=== PATIENT | female | born 1950 | race Caucasian/White ===

== ENCOUNTER → 2016-06-01 | Outpatient (CLI) | payer BC ==
[~2016-06-01] MED LIST: ASCO1CAP3 PO; CALC-51 PO; CHOL1000 PO; CLBPO15 TOP; FMR25 PO; HYDR-5688 PO; LISI-725 PO; LISI10TA PO; MAGN200T3 PO; MELO7.5T5 PO; MISCCAP80 PO; MULT-506 PO; OXYC-57 PO; TRAM-10 PO; VALA500T60 PO
--- NOTE | 2016-06-01 15:32 | MAMMOGRAPHY REPORT ---
UNILATERAL RIGHT DIGITAL DIAGNOSTIC MAMMOGRAM TOMOSYNTHESIS WITH CAD: 06/01/2016 CLINICAL HISTORY: History of right breast cancer status post lumpectomy and radiation therapy. The patient reports some right breast pain after surgery but denies any palpable lumps or other complain ts. TECHNIQUE: Breast tomosynthesis in addition to standard 2D mammography was performed. Current study was also evaluated with a Computer Aided Detection (CAD) system. Right CC and MLO 2-D and tomosynt hesis images and spot magnification right cc and ML views were obtained. COMPARISON: Comparison is made to exams dated: 12/06/2015 mammogram, 11/29/2015 mammogram, 11/29/2015 ul trasound, and 11/22/2015 mammogram - [facility]. BREAST COMPOSITION: There are scattered areas of fibroglandular density in the right breast. FINDINGS: There are new post surgical changes in the right central breast from prior lumpectomy, inc luding new density, architectural distortion, and surgical clips at the lumpectomy bed. Spot magnif ication views of the lumpectomy bed demonstrate grouped faint calcifications lateral and superior to the lumpectomy bed as well as a single punctate calcification anterior to the surgical clips on the cc view which appear stable compared to multiple prior exams. Additionally, there is a small 1 mm cluster of faint punctate calcifications medial to the lumpectomy bed on the cc view which is also l ikely stable compared to multiple prior exams. There is mild diffuse right breast skin thickening, likely a sequela of radiation therapy. The remainder of the right breast is stable compared to prio r exams, without suspicious masses, calcifications, or areas of nonsurgical architectural distortion noted. IMPRESSION: ACR-BI-RADS CATEGORY 3: PROBABLY BENIGN Expected posttreatment changes in the right breast. Benign-appearing calcifications seen adjacent t o the lumpectomy bed are likely stable compared to multiple prior exams and are probably benign. Re commend bilateral diagnostic mammograms in 6 months, to reevaluate the right breast postsurgical paulina nges and calcifications and for routine mammography of the left breast. The patient has been verbally notified of the results. Approximately 10% of breast cancers are not detected with mammography. A negative mammographic repor t should not delay biopsy if a clinically suggestive mass is present. Lili Mueller M.D. ah/:06/01/2016 14:15:15 Senior Producer: Perla DOVE)([place]), [facility] letter sent: Personal History 3 BI-RADS Code: ACR-BI-RADS Category 3: Probably Benign
== END | disposition home or self-care (01) ==
LOC: C.MAMM 13:43
PROVIDERS: ATTEND Radiology Radiation Oncology
DX: R92.1 Mammographic calcification found on diagnostic imaging of breast (principal); Z85.3 Personal history of malignant neoplasm of breast; Z08 Encounter for follow-up examination after completed treatment for malignant neoplasm

== ENCOUNTER → 2016-06-13 | Outpatient (CLI) | payer BC ==
[2016-06-13 10:57] LABS: BASO % 0.4 %; BASO ABS # 0.02 K/uL (0-0.2); COMPLETE YES; EOS % 1.3 %; HEMATOCRIT 41.9 % (37-47); IG% 0.2 %; LYMPH % 29.1 %; LYMPH ABS # 1.52 K/uL (1.2-3.4); MEAN CELL VOLUME 93.9 fL (80-100); MEAN CORPUSCULAR HEMOGLOBIN 32.1 pg (25-34); MEAN CORPUSCULAR HGB CONC 34.1 g/dl (32-36); MEAN PLATELET VOLUME 10.4 fL (7.4-10.4); MONO % 6.3 %; NEUT % 62.7 %; PLATELET COUNT 303 K/uL (130-400); RED BLOOD COUNT 4.46 M/uL (4.2-5.4); WHITE BLOOD COUNT 5.22 K/uL (4.8-10.8)
[2016-06-13 11:21] LABS: ALB/GLOB RATIO 1.1 (0.9-2); ALT/SGPT 22 U/L (12-78); AST/SGOT 11 U/L (15-37); BLOOD UREA NITROGEN 14 mg/dl (7-18); CALCIUM 9.8 mg/dl (8.5-10.1); CARBON DIOXIDE 29 mmol/L (21-32); CHLORIDE 106 mmol/L (98-107); CREATININE 0.79 mg/dl (0.60-1.20); GLUCOSE 79 mg/dl (70-99); POTASSIUM 3.9 mmol/L (3.5-5.1); SODIUM 143 mmol/L (136-145)
[2016-06-13 11:32] LABS: ALKALINE PHOSPHATASE 77 U/L (45-117); CHOLESTEROL 230 mg/dl (0-200); CHOLESTEROL/HDL RATIO 2.9; HDL CHOLESTEROL 79 mg/dl; LDL CHOLESTEROL CALCULATED 121 mg/dl; TRIGLYCERIDES 150 mg/dl (0-150); VERY LOW DENSITY LIPOPROT CALC 30 mg/dl
== END | disposition home or self-care (01) ==
LOC: C.LAB1850 09:18
PROVIDERS: ATTEND Internal Medicine
DX: M85.80 Other specified disorders of bone density and structure, unspecified site (principal); E78.5 Hyperlipidemia, unspecified

== ENCOUNTER → 2016-09-12 | Outpatient (CLI) | payer BC ==
[2016-09-12 14:08] VITALS: BP 157/93; PULSE 72; TEMP 36.8; O2SAT 98
--- NOTE | 2016-09-12 15:41 | Radiation Oncology Follow-Up ---
Radiation Oncology Follow-Up Date of Visit September 12, 2016. Reason For Visit 6 month follow-up Radiation Completion Date 02/09/16 Diagnosis (1) Breast cancer Status: Resolved Onset Date: 12/06/2015 Histology Subtype: ductal Stage: l (A) Permanent Comment: Abnormal right breast mammogram Status post stereotactic biopsy 12/06/2015 Invasive ductal carcinoma grade 1 Estrogen receptor positive, progesterone receptor positive, HER-2/enedina negative Status post lumpectomy and sentinel lymph node biopsy 12/22/2015 Stage pTIb pN0 M0 Oncotype DX score of 13 Status post completion of radiation therapy 02/09/2016 received 3850 cGy utilizing accelerated partial breast irradiation. Last Edited By: Rosa Tamez on Mar 21, 2016 16:14 History of Present Illness Ms. Mon is a 66-year-old female without a family history of breast cancer. She is been followed with annual screening mammograms. On 11/22/2015 patient underwent a bilateral digital screening mammogram. This showed a possible increasing cluster of microcalcifications in the 12:00 middle to posterior right breast. Additional spot magnification views were recommended. In the same area there was a possible increase in focal asymmetry measuring up proximally 1.2 cm. Additional spot compression to mow synthesis views and possibly ultrasound were recommended. On 11/29/2015 patient underwent a unilateral right digital diagnostic mammogram and targeted right breast ultrasound. This confirmed a 1.2 cm cluster pleomorphic microcalcifications at 12:30 middle one third of the right breast that had increased compared to all prior studies. On spot compression views including to mow synthesis images there was no definitive architectural distortion or obvious mass. Real-time high-resolution sonographic evaluation was performed in the 11, 12, 1 and 2:00 axes of the right breast. Noted definite 12 mm lesion is seen to correlate with the mammographic abnormality. This was given a BI-RADS Category 4B with recommended further evaluation of the right breast with stereotactic guided biopsy. On 12/06/2015 patient underwent a stereotactic guided biopsy of the right breast. This revealed an invasive ductal carcinoma Myra grade 1 of 3 measuring 1.5 mm. Estrogen receptors were positive (100%, strong intensity, H score: 300). Progesterone receptors were positive (100%, intermediate intensity , H score: 200). HER-2/enedina overexpression was negative and confirmed negative by FISH amplification. Ki-67 proliferation index was 15% (intermediate). 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 Case: [id number]. Patient was seen by Dr. Juan Pan. He discussed treatment options with the patient who proceeded to agree to a breast conserving therapy. Therefore on the patient underwent a sentinel node biopsy and partial mastectomy of the right breast. 3 sentinel nodes and one non-sentinel node were identified. And all were negative by routine stains or by immunohistochemistry to cytokeratin. The lumpectomy specimen confirmed residual infiltrating ductal carcinoma grade 1 measuring at least 0.6 x 0.5 cm. There was evidence of ductal carcinoma in situ, intermediate grade with comedonecrosis. There was extensive intraductal component present and lobular carcinoma in situ. The margins were negative for in situ and invasive carcinoma. Lobular carcinoma in situ was present at the inferior margin. Additional margins were negative. Invasive carcinoma was present 0.1 cm from the superior margin and the DCIS is present less than 0.1 cm from the superior margin and 0.1 cm of inked inferior margin. The area of DCIS measures 2.0 x 1.6 x 1.0 cm. Within this area was infiltrating ductal carcinoma. Case: 11/24/2007-S. The tissue was sent for Oncotype DX analysis. Recurrence score was a 13 placing the patient in a low risk category. The patient was seen in referral by Dr. Freddie Warren. Based on the Oncotype testing results he recommended no systemic chemotherapy. He did discuss adjuvant antiestrogen therapy which will begin following the completion of her radiation. We will also asked to see the patient in referral to evaluate her for and discuss with her the role of adjuvant radiation. It is for this reason the patient is seen in referral. She underwent a CT simulation was found to be a candidate for accelerated partial breast irradiation. This was completed on 02/09/2016. She received 3850 cGy Interim History She's been doing well over the past 6 months. She does continue to have a mild discomfort in the lower outer portion of the right breast. She gives a pain level I. Nothing in particular makes this worse. She has noted no masses and no changes of the axilla. She's had no swelling of her arm. She is on Femara and denies side effects other than mild hot flashes. She is up-to-date on mammography. She has a mammogram 06/01/2016. This was a unilateral right digital diagnostic mammogram. This showed expected posttreatment changes in the right breast. Benign-appearing calcifications seen adjacent to the lumpectomy bed are likely stable compared to multiple prior studies and are probably benign. This was given a BI-RADS Category 3 with recommendation of a bilateral digital diagnostic mammogram in 6 months. She has been feeling ill for the past 2 days. She did have mild fever and chills. She has had nausea without vomiting. She did have some diarrhea. She ate out at [employer] and feels that this may be due to the type of food daily. She took Zantac last evening and this did seem to help. Allergies Coded Allergies: BEE STING (Verified Allergy, Mild, SWELLING AROUND SITE AND SOMETIMES WORSE DEPENDS ON BEE, 12/22/15) NO KNOWN DRUG ALLERGIES (Verified Allergy, Mild, ., 12/22/15) Home Medications Scheduled Ascorbic Acid (Vitamin C), 1 CAP PO DAILY Calcium Carbonate-Vitamin D (Calcium), 1,500 MG PO QAM Cholecalciferol (Vitamin D3), 1 TAB PO QAM Letrozole (Femara), 1 TAB PO DAILY Lisinopril (Prinivil), 1 TAB PO DAILY Magnesium (Magnesium), 2 TAB PO DAILY Scheduled PRN Multivitamin (Multivitamin), 1 TAB PO DAILY PRN for WHEN REMEMBERS Valacyclovir (Valtrex), 500 MG PO DAILY PRN for COLD SORES Review of Systems Gastrointestinal: Symptoms: WNL Oral: Symptoms: No Problems Respiratory: Symptoms: WNL Urinary: Symptoms: WNL Skin: Symptoms: No Problems Breast: Right Upper Arm Measurement: 27.5 Right Mid Arm Measurement: 23.5 Right Wrist Measurement: 15.5 Left Upper Arm Measurement: 28.8 Left Mid Arm Measurement: 23.5 Left Wrist Measurement: 15.5 Arm Dominence: Right Physical Exam Vital Signs Date Time Temp Pulse Resp B/P Pulse Ox O2 Delivery O2 Flow Rate FiO2 09/12/16 14:08 36.8 72 16 157/93 98 Fatigue: None General Appearance: no apparent distress Eyes: normal inspection, EOMI ENT: normal ENT inspection, hearing grossly normal Neck: no adenopathy, thyroid normal Respiratory/Chest: lungs clear, no respiratory distress, no accessory muscle use Breast: Breast examination reveals well-healed incisions of the right breast. There are no masses. There is slight tenderness of the right lower outer quadrant. There is no erythema or edema. There is no ecchymosis. There are no skin retractions or nipple changes. Using the [place] score cosmesis she has a excellent outcome. The left breast showed no masses or tenderness and no axillary adenopathy. Cardiovascular: regular rate, rhythm, no gallop, no murmur Abdomen: non tender Neurologic/Psychiatric: no motor/sensory deficits, alert Skin: warm/dry Lymphatic: no adenopathy Laboratory Studies Test 08/24/16 10:28 White Blood Count 4.35 K/uL (4.8-10.8) Red Blood Count 4.25 M/uL (4.2-5.4) Hemoglobin 13.3 g/dL (12.0-16.0) Hematocrit 40.0 % (37-47) Mean Corpuscular Volume 94.1 fL (80-100) Mean Corpuscular Hemoglobin 31.3 pg (25-34) Mean Corpuscular Hemoglobin Concent 33.3 g/dl (32-36) Platelet Count 276 K/uL (130-400) Mean Platelet Volume 10.0 fL (7.4-10.4) Neutrophils (%) (Auto) 57.2 % Lymphocytes (%) (Auto) 30.8 % Monocytes (%) (Auto) 6.0 % Eosinophils (%) (Auto) 4.6 % Basophils (%) (Auto) 0.9 % Neutrophils # (Auto) 2.49 K/uL (1.4-6.5) Lymphocytes # (Auto) 1.34 K/uL (1.2-3.4) Monocytes # (Auto) 0.26 K/uL (0.11-0.59) Eosinophils # (Auto) 0.20 K/uL (0-0.5) Basophils # (Auto) 0.04 K/uL (0-0.2) RDW Standard Deviation 43.3 fL (36.4-46.3) RDW Coefficient of Variation 12.7 % (11.5-14.5) Immature Granulocyte % (Auto) 0.5 % Immature Granulocyte # (Auto) 0.02 K/uL (0.00-0.02) Sodium Level 145 mmol/L (136-145) Potassium Level 3.8 mmol/L (3.5-5.1) Chloride Level 109 mmol/L (98-107) Carbon Dioxide Level 30 mmol/L (21-32) Anion Gap 6.0 mmol/L (3-11) Blood Urea Nitrogen 21 mg/dl (7-18) Creatinine 0.83 mg/dl (0.60-1.20) Estimated GFR () 87.0 Estimated GFR (Non- 75.0 BUN/Creatinine Ratio 25.2 (10-20) Random Glucose 80 mg/dl (70-99) Calcium Level 9.2 mg/dl (8.5-10.1) Total Bilirubin 0.4 mg/dl (0.2-1) Aspartate Amino Transferase (AST) 10 U/L (15-37) Alanine Aminotransferase (ALT) 22 U/L (12-78) Alkaline Phosphatase 74 U/L (45-117) Lactate Dehydrogenase 168 U/L (84-246) Total Protein 7.0 gm/dl (6.4-8.2) Albumin 3.7 gm/dl (3.4-5.0) Globulin 3.3 gm/dl (2.5-4.0) Albumin/Globulin Ratio 1.1 (0.9-2) Additional Studies Patient: ARIANA MON [facility] Rec: [id number] Address1: [facility] Address2: [facility] ID: [id number] Date: 1950 Sex: F Ref Phy: Evert Warren MD Att Phy: Rosa Tamez PA-C [facility] Phy: Thuan Oneil M.D. Inter Phy: Lili Mueller [facility]: [place] [address] SC: C.MAMM Report #: [id number] Lead Vulcanizing Operator: OCTAVIO Diagnosis: RT BREAST CA F/U TO RADIATION Service Date: 06/01/16 MNE: [id number] Ordering Dr: Rosa Tamez PA-C CC: Rosa Tamez PA-C CONF: DICTATED BY: Lili Mueller MD MAMMOGRAPHY REPORT UNILATERAL RIGHT DIGITAL DIAGNOSTIC MAMMOGRAM TOMOSYNTHESIS WITH CAD: 06/01/2016 CLINICAL HISTORY: History of right breast cancer status post lumpectomy and radiation therapy. The patient reports some right breast pain after surgery but denies any palpable lumps or other complaints. TECHNIQUE: Breast tomosynthesis in addition to standard 2D mammography was performed. Current study was also evaluated with a Computer Aided Detection (CAD ) system. Right CC and MLO 2-D and tomosynthesis images and spot magnification right cc and ML views were obtained. COMPARISON: Comparison is made to exams dated: 12/06/2015 mammogram, 11/29/2015 mammogram, 11/29/2015 ultrasound, and 11/22/2015 mammogram - [facility]. BREAST COMPOSITION: There are scattered areas of fibroglandular density in the right breast. FINDINGS: There are new post surgical changes in the right central breast from prior lumpectomy, including new density, architectural distortion, and surgical clips at the lumpectomy bed. Spot magnification views of the lumpectomy bed demonstrate grouped faint calcifications lateral and superior to the lumpectomy bed as well as a single punctate calcification anterior to the surgical clips on the cc view which appear stable compared to multiple prior exams. Additionally, there is a small 1 mm cluster of faint punctate calcifications medial to the lumpectomy bed on the cc view which is also likely stable compared to multiple prior exams. There is mild diffuse right breast skin thickening, likely a sequela of radiation therapy. The remainder of the right breast is stable compared to prior exams, without suspicious masses, calcifications, or areas of nonsurgical architectural distortion noted. IMPRESSION: ACR-BI-RADS CATEGORY 3: PROBABLY BENIGN Expected posttreatment changes in the right breast. Benign-appearing calcifications seen adjacent to the lumpectomy bed are likely stable compared to multiple prior exams and are probably benign. Recommend bilateral diagnostic mammograms in 6 months, to reevaluate the right breast postsurgical changes and calcifications and for routine mammography of the left breast. The patient has been verbally notified of the results. Approximately 10% of breast cancers are not detected with mammography. A negative mammographic report should not delay biopsy if a clinically suggestive mass is present. Lili Mueller M.D. ah/:06/01/2016 14:15:15 Vice President Of Talent Management: Perla DOVE)([place]), [facility] letter sent: Personal History 3 BI-RADS Code: ACR-BI-RADS Category 3: Probably Benign Dictated by: Lili Mueller MD Signed by: Lili Mueller MD Assessment & Plan Plan: Continue mammography as scheduled. She'll be having a bilateral digital diagnostic mammogram in November. We discussed the area of discomfort. This is likely posttreatment inflammation. I recommended ibuprofen 400 mg twice a day with food. I've asked her to not start this treatment until after she is feeling better in regards to her current GI side effects. We discussed this may be a flu or related to food she had eaten. She'll see her primary care physician if this does not resolve. Continue regular follow-up with Dr. Deangelo Reynoso and her primary care physician. She continues on Femara. We asked her to return to our office in 1 year. She may call if she has any questions or concerns in the interim. Total Time In Follow-Up I spent 20 minutes speaking to the patient performing examination. I spent 15 minutes reviewing information and completing this note. Copy To Juan Pan M.D.; Evert Warren MD; Thuan Oneil M.D. Problem Qualifiers (1) Breast cancer: Breast location: central portion of breast Estrogen receptor status: positive Patient sex: female Laterality: right Qualified Codes: C50.111 - Malignant neoplasm of central portion of right female breast; Z17.0 - Estrogen receptor positive status [ER+]
== END | disposition home or self-care (01) ==
LOC: C.ONC 13:54
PROVIDERS: ATTEND Radiology Radiation Oncology
DX: Z08 Encounter for follow-up examination after completed treatment for malignant neoplasm (principal); Z92.3 Personal history of irradiation; Z85.3 Personal history of malignant neoplasm of breast

== ENCOUNTER → 2016-11-13 | Outpatient (CLI) | payer BC ==
[~2016-11-13] MED LIST changes: -MISCCAP80 PO
== END | disposition home or self-care (01) ==
LOC: C.PAPS 08:25
PROVIDERS: ATTEND Obstetrics & Gynecology
DX: Z01.419 Encounter for gynecological examination (general) (routine) without abnormal findings (principal)

== ENCOUNTER → 2016-12-07 | Outpatient (CLI) | payer BC ==
--- NOTE | 2016-12-08 14:32 | MAMMOGRAPHY REPORT ---
BILATERAL DIGITAL DIAGNOSTIC MAMMOGRAM TOMOSYNTHESIS WITH CAD AND TARGETED BILATERAL ULTRASOUND: 12/07 CLINICAL HISTORY: History of right breast cancer status post lumpectomy November 2015 as well as radiat ion therapy, here for second follow-up after treatment. The patient reports continued pain in the ri ght breast although it has improved since surgery. TECHNIQUE: Breast tomosynthesis in addition to standard 2D mammography was performed. Current study was also evaluated with a Computer Aided Detection (CAD) system. Bilateral CC and MLO 2-D and tomosy nthesis images, spot compression left CC and MLO tomosynthesis images including C views, and spot mag nification right cc and ML views were obtained. COMPARISON: Comparison is made to exams dated: 06/01/2016 mammogram, 11/29/2015 mammogram, 11/29/2015 ultr asound, 11/22/2015 mammogram, 11/13/2014 mammogram, and 11/12/2013 mammogram - [facility]. BREAST COMPOSITION: There are scattered areas of fibroglandular density in both breasts. FINDINGS: There are stable postsurgical changes in the right central breast from prior lumpectomy, i ncluding stable density, architectural distortion, and surgical clips at the lumpectomy bed. Spot ma gnification views of the lumpectomy bed demonstrate faint calcifications surrounding the lumpectomy b ed, predominantly superiorly and laterally, which are stable on spot magnification views dated 06/01/19. Additionally, the calcifications appear stable on full-field views compared to multiple prior ex ams. Mild diffuse right breast skin thickening is again noted, likely a sequela of radiation therapy . A linear scar marker denotes a scar on the right breast. There is a new ill-defined area of architectural distortion seen within the left central breast, best seen on the tomosynthesis images, for which ultrasound was performed. The remainder of both breasts are stable compared to prior exams, without suspicious masses, calcifications, or areas of commercial green building architect ural distortion noted. Other scattered bilateral benign-appearing calcifications are not significant ly changed. Targeted ultrasound was performed of the area of pain pointed out by the patient in the right 7:00 re gion. There is hypoechoic tissue in the right 7:00 subareolar breast consistent with postsurgical ch anges, with no suspicious mass or other suspicious sonographic abnormality evident. Targeted ultrasound was performed of the area of the architectural distortion seen within the left br east. In the left 12:00 subareolar breast, there is an ill-defined hypoechoic mass with associated a rchitectural distortion measuring 6 x 6 x 7 mm. This corresponds with the mammographic architectural distortion and is indeterminate. Ultrasound-guided core needle biopsy is recommended for further ev aluation. IMPRESSION: ACR BI-RADS CATEGORY 4: SUSPICIOUS, TARGETED ULTRASOUND ACR BI-RADS CATEGORY 4: SUSPICIO US 1. Stable post treatment changes in the right breast status post lumpectomy and radiation therapy, w ith no mammographic evidence of malignancy in the right breast. Recommend diagnostic tomosynthesis m ammograms of the right breast in one year, and recommend clinical follow-up for right breast pain. 2. New architectural distortion in the left central breast mammographically, with a corresponding 6 mm hypoechoic mass seen on ultrasound. Findings are indeterminate and ultrasound-guided core needle biopsy is recommended for further evaluation. Differential considerations include radial scar or mal ignancy. If pathology results are malignant, then bilateral breast MRI is recommended for further ev aluation. A phone call was made to the physician's office to confirm faxed results were received. The patient has been verbally notified of the results. She tentatively scheduled the biopsy [facility]. Approximately 10% of breast cancers are not detected with mammography. A negative mammographic report should not delay biopsy if a clinically suggestive mass is present. Lili Mueller M.D. ah/:12/07/2016 15:43:12 Catastrophe Claims Supervisor: Ifrah ALEJO(Allie)([place]), [facility] letter sent: Abnormal 4/5 BI-RADS Code: ACR BI-RADS Category 4: Suspicious Ultrasound BI-RADS: ACR BI-RADS Category 4: Suspici ous
== END | disposition home or self-care (01) ==
LOC: C.MAMM 13:46
PROVIDERS: ATTEND Physician Assistant Medical
DX: Z09 Encounter for follow-up examination after completed treatment for conditions other than malignant neoplasm (principal); C50.111 Malignant neoplasm of central portion of right female breast; N64.89 Other specified disorders of breast; N64.4 Mastodynia

== ENCOUNTER → 2016-12-11 | Outpatient (CLI) | payer BC ==
--- NOTE | 2016-12-11 13:39 | Discharge Instructions ---
Discharge Instructions Procedure Procedure Date: Dec 11, 2016. Reason for visit: Left Distortion. Discharge Discharge Date: Dec 11, 2016. Discharge Diagnosis: post left 12:00 retroareolar breast ultrasound guided core biopsy Instructions Activity Recommendations: Additional Limitations (see below) Return to School/Work: no limitations Recommended Home Diet: No Limitations Provider Instructions: ACTIVITY RECOMMENDATIONS: * No lifting, pushing, pulling or exercising the affected side for three days. RETURN TO SCHOOL/WORK: * You may return to work/school after the procedure, but do not perform any strenuous activities for 24 to 48 hours. MEDICATIONS: * Tylenol (two 325 mg) every four to six hours if needed for mild pain (if not allergic to Tylenol). DIET: * Resume previous diet. SPECIAL CARE INSTRUCTIONS: * Keep biopsy site dry for 24 hours. May shower after 24 hours, but do not soak (bathe) incision. * May remove Tegaderm (plastic patch) tomorrow AFTER showering. * Leave the steri-strips on for one week. Allow the steri-strips to fall off by themselves. If not off after one week, you may remove them. You may place a Bandaid crosswise over the strips, if desired. * Apply ice 10 minutes on and 10 minutes off as needed. * Wear a bra at bedtime to sleep more comfortably for 2-3 days. * Your referring physician should have the results after approximately 5 to 7 business days. * Call for unusual bleeding, fever, drainage, etc or if you have any questions call [phone] during normal business hours or after hours call Dr Dyer, . FOLLOW UP VISIT: Follow-up with Referring Physician as scheduled. Allergies Coded Allergies: BEE STING (Verified Allergy, Mild, SWELLING AROUND SITE AND SOMETIMES WORSE DEPENDS ON BEE, 12/22/15) NO KNOWN DRUG ALLERGIES (Verified Allergy, Mild, ., 12/22/15) Shyla Renner Recommendations: Call your doctor if: * Temperature above 101 degrees * Pain not relieved by pain medicine ordered * There is increased drainage or redness from any incision * You have any unanswered questions or concerns. Your Doctors Instructions noted above were prepared by provider Tram Dyer. Patient Signature Section: Patient Instructions Signature Page Elizabeth Chavarria Patient (or Guardian) Signature/Date: I have read and understand the instructions given to me by my caregivers. Caregiver/RN/Doctor Signature/Date: The above-named patient and/or guardian has received patient instructions on this date. + Original Patient Signature Page (only) stays with chart. Please make copy for patient.
--- NOTE | 2016-12-11 15:23 | MAMMOGRAPHY REPORT ---
THIS REPORT HAS BEEN AMENDED. ULTRASOUND GUIDED BIOPSY LEFT BREAST: 12/11/2016 CLINICAL HISTORY: Ill-defined taller than wide 5 x 6 mm mass with associated architectural distortion in the 12:00 retroareolar left breast. Patient presented for ultrasound-guided core biopsy. Person al history of right breast cancer status post breast conservation therapy. COMPARISON: Comparison is made to exams dated: 12/07/2016 ultrasound, 12/07/2016 mammogram, 06/01/2016 m ammogram, 12/22/2015 specimen, 12/22/2015 localization, and 12/06/2015 stereotactic biopsy - [facility]. PATIENT CONSENT: The procedure, risks and benefits were discussed with the patient and informed conse nt was obtained both verbally and in writing. Specific risks to this procedure include: bleeding, in fection, puncture of adjacent structure, nontarget biopsy, sampling error, pain, metal allergy and me dication reaction. PROCEDURE DESCRIPTION: A time out was performed and the left breast was agreed as the site of biopsy. The skin was prepped and draped in the usual sterile fashion. The hypoechoic shadowing mass with ass ociated architectural distortion in the left 12:00/retroareolar breast was chosen as the target for b iopsy. Subcutaneous and intraparenchymal 1% buffered lidocaine, with and without epinephrine, was adm inistered as local anesthesia. A skin incision was made. Through the incision, 5 samples were taken with a 12 gauge Celero biopsy device. A ribbon shaped metallic marker was placed at the biopsy site. Hemostasis was achieved after manual compression. The patient tolerated the procedure well and there was no immediate complication. The samples were sent to the pathology department in an appropriately labeled container. Postprocedure left CC and ML tomosynthesis images were obtained. A new ribbon-shaped metallic biopsy marker is identified in the 12:00 retroareolar left breast, correlating with the mammographic distor tion. There is a 5 mm hematoma at the biopsy site. IMPRESSION: ULTRASOUND GUIDED BIOPSY Status post ultrasound guided core biopsy of a 6 mm hypoechoic mass with associated architectural dis tortion in the 12:00 retroareolar left breast, with biopsy marker placed at the site. Tram Dyer M.D. ay/:12/11/2016 13:51:47 Telephone Technician: Mohini DOVE)([place]), [facility] AMENDMENT: 12/12/2016 Tram Dyer M.D. Pathology from the ultrasound guided core biopsy of a subtle area of architectural distortion/mass in the 12:00 left breast yielded benign breast tissue. See comment. Negative for DCIS and invasive ca rcinoma. "Sections reveal small tubules that within fibrous and overlapping the last out external. T he differential includes sclerosing adenosis and a radial scar. The features are suggestive of a rad ial sclerosing lesion though not diagnostic. No DCIS or invasive carcinoma is identified." The path ology results are concordant with the imaging appearance, as a radial scar was one of the top differe ntial considerations. Therefore, surgical consultation with the patient's breast surgeon, Dr. Pan, for surgical excisional biopsy is recommended. These pathology results and recommendations were discussed with the patient at 4:20 PM on 12/12/2016.
--- NOTE | 2016-12-11 15:25 | MAMMOGRAPHY REPORT ---
UNILATERAL LEFT DIGITAL DIAGNOSTIC MAMMOGRAM TOMOSYNTHESIS: 12/11/2016 CLINICAL HISTORY: Status post ultrasound-guided core biopsy of a 5 x 6 mm mass with associated mechelle ectural distortion in the 12:00 retroareolar left breast. Please refer to the report from left breast ultrasound guided core biopsy performed at the same time for full detail. IMPRESSION: POST PROCEDURE IMAGING FOR MARKER PLACEMENT Please refer to the report from left breast ultrasound guided core biopsy performed at the same time for full detail. Approximately 10% of breast cancers are not detected with mammography. A negative mammographic report should not delay biopsy if a clinically suggestive mass is present. Tram Dyer M.D. ay/:12/11/2016 13:41:57 Dietary Aid: Mohini ALEJO(R)(M), [facility] BI-RADS Code: Post Procedure Imaging For Marker Placement
== END | disposition home or self-care (01) ==
LOC: C.MAMM 12:50
PROVIDERS: ATTEND Physician Assistant Medical
DX: R92.8 Other abnormal and inconclusive findings on diagnostic imaging of breast (principal)

== ENCOUNTER → 2016-12-29 | Day surgery (SDC) | payer BC ==
[2016-12-19 13:06] VITALS: Ht 167.6 cm; Wt 69.5 kg
[~2016-12-29] VITALS: Ht 167.6 cm; Wt 69.5 kg
[~2016-12-29] MED LIST changes: +ATROPINE SULFATE 0.1 MG/ML 5ML SYR IV PRN; +BUPIVACAINE 0.5 % 5 MG/1 ML MPF 30ML VIAL ONE; +CEFAZOLIN 2000 MG/60 ML D5W IV SCH; +DEXAMETHASONE SOD INJ 4 MG/ML VIAL ONE; +EpHEDrine SULFATE 50MG/5ML SYR ONE; +EpHEDrine SULFATE INJ 50 MG/ML AMP IV PRN; +FENTANYL CITRATE INJ 50 MCG/1 ML 2 ML VIAL IV PRN; +FENTANYL CITRATE INJ 50 MCG/1 ML 2 ML VIAL ONE; +FLUMAZENIL 0.1 MG/1 ML 10 ML VIAL IV PRN; +HYDROCODONE/ACETAMOPHEN 5/325MG TAB PO PRN; +LABETALOL HCL IV 5 MG/ML 20ML IV PRN; +LACTATED RINGER'S 1000ML 1,000 ML IV SCH; +LIDOCAINE HCL 2% 2 ML VIAL (20MG/ML) ONE; +MIDAZOLAM HCL 1 MG/ML 2ML VIAL ONE; +NALOXONE HCL 0.4 MG/1 ML VIAL/CARP IV PRN; +ONDANSETRON INJ 2 MG/ML 2 ML VIAL IV PRN; +ONDANSETRON INJ 2 MG/ML 2 ML VIAL ONE; +PROMETHAZINE HCL INJ 12.5 MG in SODIUM CHLORIDE 0.9% 50ML 50 ML IV PRN; +PROPOFOL IV EMULSION 10 MG/ML 20 ML VIAL IV ONE; +SODIUM CHLORIDE 0.9% 1000ML 1,000 ML IV SCH
--- NOTE | 2016-12-29 10:15 | History & Physical Bridge - SC ---
H&P Re-Evaluation Bridge Note: I have examined the patient, reviewed the History & Physical and in the interval since the performance of the History & Physical I have noted the following changes of clinical significance: No changes noted
--- NOTE | 2016-12-29 10:55 | [facility] Operative Report ---
Operative Report Operative Date Dec 29, 2016. Pre-Operative Diagnosis Left Breast Abnormal Mammogram Post-Operative Diagnosis same as preop Procedure(s) Performed Left Breast Biopsy With Needle Localization Surgeon Dr. Pan Sustainability Engineer Surgeon(s) JOEL Rizvi Estimated Blood Loss 5ML Findings clip Specimens A: Left Breast Mass out at 1039 (taken to breast care center at 1040) Anesthesia gen/ LMA Complication(s) None Disposition Recovery Room / PACU I attest to the content of the Intraoperative Record and any orders documented therein. Any exceptions are noted below.
--- NOTE | 2016-12-29 11:00 | Discharge Instructions-SurgCtr ---
Discharge Instructions Date of Service Dec 29, 2016. Visit Reason for Visit: Left Breast Abnormal Mammogram Discharge Discharge Diagnosis / Problem: abnormal Lt br mammogram Discharge Goals Goal(s): Decrease discomfort, Improve function, Improve disease control Activity Recommendations Activity Limitations: as noted below Lifting Limitations: no more than 25 pounds Exercise/Sports Limitations: until after follow-up appointment May Resume Sexual Activity: when tolerated Shower/Bathe: keep incision dry (for 2 days, may shower over incision Sun /) Driving or Machine Use: resume 1 day after discharge SPECIAL CARE INSTRUCTIONS: * Cover incisions and change daily for comfort/drainage. * Leave steri strips in place * May use ibuprofen for pain as tolerated. * Expect some swelling and bruising. Call your doctor if: * Temperature above 101 degrees * Pain not relieved by pain medicine ordered * There is increased drainage or redness from any incision * You have any unanswered questions or concerns [phone]. FOLLOW UP VISIT: If not already scheduled, please call the office for a follow-up visit. for 2 weeks- check up- no sutures to remove OFFICE PHONE NUMBER: Dr. Pan Office Anesthesia . Post Anesthesia Instructions: If you have had General Anesthesia or IV Sedation: * Do not drive today. * Resume driving when surgeon permits. * Do not make important decisions or sign legal documents today. * Call surgeon for: 1. Temperature elevations greater than 101 degrees F. 2. Uncontrollable pain. 3. Excessive bleeding. 4. Persistent nausea and vomiting. 5. Medication intolerance (nausea, vomiting or rash). * For nausea and vomiting use only clear liquids such as: tea, soda, bouillon until nausea subsides, then gradually increase diet as tolerated. * If you have any concerns or questions, call your surgeon's office. If physician is unavailable and it is an emergency, call 911 or go to the nearest emergency room. . Diet Recommendations Home Diet: resume previous diet Procedures Procedures Performed: Left Breast Biopsy With Needle Localization Pending Studies Studies pending at discharge: no Medical Emergencies . Who to Call and When: Medical Emergencies: If at any time you feel your situation is an emergency, please call 911 immediately. . Non-Emergent Contact Non-Emergency issues call your: Primary Care Provider, Surgeon . . "Provider Documentation" section prepared by Juan Pan. .
--- NOTE | 2016-12-29 11:45 | OPERATIVE REPORT ---
DATE OF OPERATION: 12/29/2016 PREOPERATIVE DIAGNOSIS: Abnormal left mammogram. POSTOPERATIVE DIAGNOSIS: Same. NAME OF OPERATION: Needle localization left breast biopsy. STAFF SURGEON: Dr. Maxim M.D. CAST SHELL GRINDER: Nicolasa Levine PA-C. ANESTHESIA: General LMA. PROCEDURE: The patient was brought in the operating room and placed on the operating table in supine position. Her left breast was prepped and draped in usual fashion. She had a needle placed in the lateral central portion of the breast. Using 0.5% plain Marcaine, skin and subcutaneous tissue around the needle and medially where tissue were anesthetized. Incision made carrying dissection down. The needle came loose, but I did take the tissue medial and posterior to the tip of the needle, sent it for mammography. The clip was in the center. Deep tissue was reapproximated using 2-0 plain catgut suture then the skin reapproximated using subcuticular 5-0 Monocryl with Steri-Strips. The patient was transferred to recovery room in stable condition. I attest to the content of the Intraoperative Record and any orders documented therein. Any exception s are noted below.
--- NOTE | 2016-12-29 12:22 | Anesthesia Progress Nt - [facility] ---
Anesthesia Post Op Note Date & Time Dec 29, 2016 at 12:21 Vital Signs Pain Intensity: 3.0 Vital Signs Past 12 Hours Date Time Temp Pulse Resp B/P (MAP) Pulse Ox O2 Delivery O2 Flow Rate FiO2 12/29/16 11:35 149/87 12/29/16 11:33 36.8 67 16 145/86 99 Room Air 12/29/16 11:31 77 13 12/29/16 11:31 75 13 100 12/29/16 11:30 145/86 12/29/16 11:27 71 15 12/29/16 11:27 71 15 100 12/29/16 11:25 138/82 12/29/16 11:22 74 16 100 12/29/16 11:22 75 16 12/29/16 11:20 142/72 12/29/16 11:17 82 11 12/29/16 11:17 81 11 100 12/29/16 11:15 141/74 12/29/16 11:12 81 14 12/29/16 11:12 82 14 100 12/29/16 11:10 132/70 12/29/16 11:07 36.8 90 12 128/74 98 Diffusion Mask 6 12/29/16 11:07 92 12/29/16 11:07 92 128/74 99 12/29/16 07:48 36.8 70 18 160/96 (117) 97 Room Air Notes Mental Status: alert / awake / arousable, participated in evaluation Pt Amnestic to Procedure: Yes Nausea / Vomiting: adequately controlled Pain: adequately controlled Airway Patency, RR, SpO2: stable & adequate BP & HR: stable & adequate Hydration State: stable & adequate Anesthetic Complications: no major complications apparent
--- NOTE | 2016-12-29 12:34 | MAMMOGRAPHY REPORT ---
NEEDLE LOCALIZATION LEFT BREAST: 12/29/2016 CLINICAL HISTORY: Left 12:00 breast mass, for which core needle biopsy showed findings suggestive but not diagnostic of a radial scar. PROCEDURE DESCRIPTION: With ultrasound guidance, aseptic technique, and 1% lidocaine as the local ane sthetic, the area of concern was localized with a 5 cm French II needle. The path of approach was l ateral. Postprocedural left CC and ML 2-D and tomosynthesis images were also obtained to confirm wir e placement. The biopsy marker clip and associated architectural distortion are located at the tip o f the wire and distal to the wire. The needle was left in place. The patient tolerated the procedur e without complication. COMPARISON: Comparison is made to exams dated: 12/11/2016 mammogram, 12/11/2016 ultrasound biopsy, 11/21 ultrasound, 12/07/2016 mammogram, 06/01/2016 mammogram, and 12/22/2015 specimen - [facility]. IMPRESSION: NEEDLE LOCALIZATION Needle localization of the architectural distortion and associated biopsy marker clip in the left 12: 00 breast. Lili Mueller M.D. /:12/29/2016 08:23:25 Hedis Review Nurse: Mohini Montano, [facility]
--- NOTE | 2016-12-29 12:35 | MAMMOGRAPHY REPORT ---
UNILATERAL LEFT DIGITAL DIAGNOSTIC MAMMOGRAM TOMOSYNTHESIS: 12/29/2016 CLINICAL HISTORY: Status post ultrasound guided needle localization. Please refer to the report from left breast needle localization performed at the same time for full d etail. IMPRESSION: Please refer to the report from left breast needle localization performed at the same time for full d etail. Approximately 10% of breast cancers are not detected with mammography. A negative mammographic report should not delay biopsy if a clinically suggestive mass is present. Lili Mueller M.D. ah/:12/29/2016 08:27:14 Industrial Relations Commissioner: Perla DOVE)(M), [facility] BI-RADS Code: n/a
[2016-12-29 12:40] VITALS: BP 144/82; PULSE 72; TEMP 36.8; O2SAT 100
--- NOTE | 2017-01-01 10:30 | MAMMOGRAPHY REPORT ---
SPECIMEN LEFT BREAST: 12/29/2016 CLINICAL HISTORY: Status post left breast surgical excision. COMPARISON: Comparison is made to exams dated: 12/29/2016 localization, 12/11/2016 mammogram, 12/11/2016 ultrasound biopsy, 12/07/2016 mammogram, and 06/01/2016 mammogram - [facility]. Findings: A radiograph was performed of the left breast surgical specimen. The localized biopsy abhinav er clip and associated architectural distortion is seen centrally within the specimen. The needle lo calization wire is intact and located next to the specimen. Results were discussed with Dr. Maxim gross r the telephone. IMPRESSION: SPECIMEN The imaged specimen contains the preoperatively-localized abnormality. Lili Mueller M.D. /:12/29/2016 11:32:49 Agricultural Equipment Salesperson: Mohini Montano, [facility]
== END | disposition home or self-care (01) ==
LOC: X.SURG 07:18
PROVIDERS: ATTEND Surgery
DX: R92.8 Other abnormal and inconclusive findings on diagnostic imaging of breast (principal); E78.5 Hyperlipidemia, unspecified; I10 Essential (primary) hypertension; L90.0 Lichen sclerosus et atrophicus; E55.9 Vitamin D deficiency, unspecified; Z87.891 Personal history of nicotine dependence; Z83.3 Family history of diabetes mellitus; Z80.1 Family history of malignant neoplasm of trachea, bronchus and lung

== ENCOUNTER 2017-01-05 10:12 | Observation (INO) | payer BC ==
[~2017-01-05] VITALS: Ht 167.6 cm; Wt 69.4 kg
[~2017-01-05 10:12] MED LIST changes: -ATROPINE SULFATE 0.1 MG/ML 5ML SYR IV PRN; -BUPIVACAINE 0.5 % 5 MG/1 ML MPF 30ML VIAL ONE; -CEFAZOLIN 2000 MG/60 ML D5W IV SCH; -DEXAMETHASONE SOD INJ 4 MG/ML VIAL ONE; -EpHEDrine SULFATE 50MG/5ML SYR ONE; -EpHEDrine SULFATE INJ 50 MG/ML AMP IV PRN; -FENTANYL CITRATE INJ 50 MCG/1 ML 2 ML VIAL IV PRN; -FENTANYL CITRATE INJ 50 MCG/1 ML 2 ML VIAL ONE; -FLUMAZENIL 0.1 MG/1 ML 10 ML VIAL IV PRN; -HYDROCODONE/ACETAMOPHEN 5/325MG TAB PO PRN; -LABETALOL HCL IV 5 MG/ML 20ML IV PRN; -LACTATED RINGER'S 1000ML 1,000 ML IV SCH; -LIDOCAINE HCL 2% 2 ML VIAL (20MG/ML) ONE; -LISI-725 PO; -MELO7.5T5 PO; -MIDAZOLAM HCL 1 MG/ML 2ML VIAL ONE; -NALOXONE HCL 0.4 MG/1 ML VIAL/CARP IV PRN; -ONDANSETRON INJ 2 MG/ML 2 ML VIAL IV PRN; -ONDANSETRON INJ 2 MG/ML 2 ML VIAL ONE; -OXYC-57 PO; -PROMETHAZINE HCL INJ 12.5 MG in SODIUM CHLORIDE 0.9% 50ML 50 ML IV PRN; -PROPOFOL IV EMULSION 10 MG/ML 20 ML VIAL IV ONE; -SODIUM CHLORIDE 0.9% 1000ML 1,000 ML IV SCH
[2017-01-05] MEDS ORDERED: SODIUM CHLORIDE 0.9% 1000ML 1,000 ML IV STA ×2 (10:30→12:55)
[2017-01-05] MEDS ORDERED: FAMOTIDINE 20MG/102 ML D5W IV STA (10:30)
[2017-01-05] MEDS ORDERED: ONDANSETRON INJ 2 MG/ML 2 ML VIAL IV STA ×2 (10:30→13:45)
[2017-01-05] MEDS ORDERED: FENTANYL CITRATE INJ 50 MCG/1 ML 2 ML VIAL IV STA (10:36)
--- NOTE | 2017-01-05 10:40 | EMERGENCY ROOM VISIT NOTE ---
History Report prepared by Cain: Cynthia Lowry Under the Supervision of: Dr. Robby Esqueda M.D. First contact with patient: 10:26 Chief Complaint: NAUSEA Stated Complaint: NAUSEA Nursing Triage Summary: pt reports she feels nauseated, constipated x 2 days. called pcp told to come to ed. bilat upper pain History of Present Illness The patient is a 66 year old female who presents to the Emergency Room with complaints of persistent constipation that began two days ago. She currently rates her discomfort as a 4/10 in severity. The patient reports that several days ago she had a biopsy done on her left breast, noting that she had a benign mass removed. She reports a history of breast cancer. The patient states that two days ago she became constipated, and notes that 24 hours ago she developed upper abdominal pain and nausea. She states that all food she tries to eat she vomits back up. The patient states that she consulted her PCP and was instructed to come to the emergency department for further work up. She denies any previous abdominal surgeries. The patient reports shortness of breath due to abdominal pain. She denies any chills, but notes a subjective fever. The patient denies any alcohol use. Source of History: patient Onset: two days Position: other (global) Symptom Intensity: 4/10 Quality: other (constipation) Timing: other (persistent) Associated Symptoms: + fevers, + nausea, + vomiting, + abdominal pain, No chills Review of Systems See HPI for pertinent positives and negatives. A total of ten systems were reviewed and were otherwise negative. Past Medical & Surgical Medical Problems: (1) Breast cancer (2) Cholecystitis Family History Alzheimer's disease Cancer Diabetes mellitus Heart disease Kidney disease Social History Smoking Status: Never Smoker Alcohol Use: none Drug Use: none Marital Status: Housing Status: lives with family Occupation Status: employed Current/Historical Medications Scheduled Calcium Carbonate-Vitamin D (Calcium), 1,500 MG PO QAM Cholecalciferol (Vitamin D3), 1 TAB PO QAM Letrozole (Femara), 1 TAB PO QAM Lisinopril (Zestril), 20 MG PO DAILY Magnesium (Magnesium), 400 MG PO QAM Meloxicam (Mobic), 7.5-15 MG PO DAILY WITH FOOD Multivitamin (Multivitamin), 1 TAB PO QAM Scheduled PRN Oxycodone/Acetaminophen 5MG/325MG (Percocet 5MG/325MG), 1-2 TABLETS PO Q4H PRN for Pain Tramadol (Ultram), 50 MG PO Q4H PRN for Pain Valacyclovir (Valtrex), 500 MG PO DAILY PRN for COLD SORES Allergies Coded Allergies: BEE STING (Verified Allergy, Mild, SWELLING AROUND SITE AND SOMETIMES WORSE DEPENDS ON BEE, 12/29/16) NO KNOWN DRUG ALLERGIES (Verified Allergy, Mild, ., 12/29/16) Physical Exam Vital Signs Date Time Temp Pulse Resp B/P (MAP) Pulse Ox O2 Delivery O2 Flow Rate FiO2 01/05/17 15:53 37.2 82 16 172/90 (117) 100 Room Air 01/05/17 15:33 80 20 165/78 99 Room Air 01/05/17 14:02 76 16 159/89 99 Room Air 01/05/17 13:52 78 01/05/17 11:54 154/102 01/05/17 11:54 Room Air 01/05/17 11:14 79 01/05/17 10:18 36.6 85 28 164/96 99 Room Air Physical Exam GENERAL: Awake, alert, uncomfortable-appearing, in no distress HENT: Normocephalic, atraumatic. Dry mucous membranes. EYES: Normal conjunctiva. Sclera non-icteric. NECK: Supple. No nuchal rigidity. FROM. No JVD. RESPIRATORY: Clear to auscultation. CARDIAC: Regular rate, normal rhythm. Extremities warm and well perfused. Pulses equal. ABDOMEN: Soft, non-distended. Mild epigastric tenderness to palpation. Equivocal murphys sign, no peritoneal sign. No rebound or guarding. No masses. RECTAL: Deferred. MUSCULOSKELETAL: Chest examination reveals no tenderness. The back is symmetrical on inspection without obvious abnormality. There is no CVA tenderness to palpation. No joint edema. LOWER EXTREMITIES: Calves are equal size bilaterally and non-tender. No edema. No discoloration. NEURO: Normal sensorium. No sensory or motor deficits noted. SKIN: No rash or jaundice noted. Medical Decision & Procedures ER Provider Diagnostic Interpretation: Radiology results as stated below per my review and radiologist interpretation: CHEST ONE VIEW PORTABLE CLINICAL HISTORY: Chest pain. COMPARISON STUDY: No previous studies for comparison. FINDINGS: Lung volumes are normal. Lungs are clear. No pneumothorax or pleural effusion is present. Pulmonary vascularity is normal. Cardiomediastinal silhouette is normal. IMPRESSION: No acute cardiopulmonary findings. Electronically signed by: Chai Salinas M.D. 01/05/2017 11:01 AM Dictated Date/Time: 01/05/2017 11:01 AM ABD/PELVIS IV CONTRAST ONLY CT DOSE: 329.36 mGy.cm HISTORY: Pain epiaortic pain / constipation TECHNIQUE: Multiaxial CT images of the abdomen and pelvis were performed following the use of intravenous contrast. A dose lowering technique was utilized adhering to the principles of ALARA. COMPARISON STUDY: None. FINDINGS: Lung bases are clear. Liver spleen and pancreas are uniform in appearance. There are findings of moderate gallbladder wall edema versus trace amount of pericholecystic fluid. No well-defined gallstones are appreciated although the appearance does suggest a calculus cholecystitis. Pancreas is uniform with no significant pancreatic ductal distention. The adrenal glands are normal. There are several small renal cortical cysts. There is no evidence for renal hydronephrosis. Bowel pattern is considered nonobstructive. There are findings of moderate chronic sigmoid diverticulosis. No evidence for acute diverticulitis. Bladder is midline. No significant free fluid within the abdominal or pulmonary region. Inguinal regions are unremarkable. IMPRESSION: 1. Findings suggesting acute acalculus cholecystitis. 2. Right upper quadrant ultrasonography is suggested as confirmation. 3. Chronic sigmoid diverticulosis. 4. No evidence for acute diverticulitis. 5. Fecal content within the colon is considered to be within normal limits. The above report was generated using voice recognition software. It may contain grammatical, syntax or spelling errors. Electronically signed by: Aj Segovia M.D. 01/05/2017 12:18 PM Dictated Date/Time: 01/05/2017 12:08 PM Biliary ultrasound CLINICAL HISTORY: Epigastric pain COMPARISON STUDY: CT scan dated 01/05/2017 FINDINGS: The pancreas appears normal as visualized. No focal hepatic masses are visualized. There is gallbladder wall thickening, and pericholecystic fluid. Gallstones are present. There is a positive sonographic Varner sign. The findings are consistent with acute cholecystitis. There is no right-sided hydronephrosis. IMPRESSION: 1. Cholelithiasis, gallbladder wall thickening, pericholecystic fluid, and a positive sonographic Varner sign. The findings are highly suspicious for acute cholecystitis. Surgical consultation is recommended. Electronically signed by: Larry Brito M.D. 01/05/2017 3:04 PM Dictated Date/Time: 01/05/2017 3:02 PM Laboratory Results 01/05/17 11:00 Red Blood Count 4.82, Mean Corpuscular Volume 90.0, Mean Corpuscular Hemoglobin 31.1, Mean Corpuscular Hemoglobin Concent 34.6, Mean Platelet Volume 10.2, Neutrophils (%) (Auto) 75.9, Lymphocytes (%) (Auto) 15.4, Monocytes (%) (Auto) 7.8, Eosinophils (%) (Auto) 0.6, Basophils (%) (Auto) 0.1, Neutrophils # (Auto) 8.27, Lymphocytes # (Auto) 1.68, Monocytes # (Auto) 0.85, Eosinophils # (Auto) 0.06, Basophils # (Auto) 0.01 01/05/17 11:00 Test 01/05/17 11:00 01/05/17 11:26 01/05/17 13:30 White Blood Count 10.89 K/uL (4.8-10.8) Red Blood Count 4.82 M/uL (4.2-5.4) Hemoglobin 15.0 g/dL (12.0-16.0) Hematocrit 43.4 % (37-47) Mean Corpuscular Volume 90.0 fL (80-100) Mean Corpuscular Hemoglobin 31.1 pg (25-34) Mean Corpuscular Hemoglobin Concent 34.6 g/dl (32-36) Platelet Count 325 K/uL (130-400) Mean Platelet Volume 10.2 fL (7.4-10.4) Neutrophils (%) (Auto) 75.9 % Lymphocytes (%) (Auto) 15.4 % Monocytes (%) (Auto) 7.8 % Eosinophils (%) (Auto) 0.6 % Basophils (%) (Auto) 0.1 % Neutrophils # (Auto) 8.27 K/uL (1.4-6.5) Lymphocytes # (Auto) 1.68 K/uL (1.2-3.4) Monocytes # (Auto) 0.85 K/uL (0.11-0.59) Eosinophils # (Auto) 0.06 K/uL (0-0.5) Basophils # (Auto) 0.01 K/uL (0-0.2) RDW Standard Deviation 41.4 fL (36.4-46.3) RDW Coefficient of Variation 12.8 % (11.5-14.5) Immature Granulocyte % (Auto) 0.2 % Immature Granulocyte # (Auto) 0.02 K/uL (0.00-0.02) Anion Gap 10.0 mmol/L (3-11) Est Creatinine Clear Calc Drug Dose 72.8 ml/min Estimated GFR () 100.9 Estimated GFR (Non- 87.0 BUN/Creatinine Ratio 9.7 (10-20) Calcium Level 10.0 mg/dl (8.5-10.1) Total Bilirubin 0.9 mg/dl (0.2-1) Direct Bilirubin 0.2 mg/dl (0-0.2) Aspartate Amino Transf (AST/SGOT) 14 U/L (15-37) Alanine Aminotransferase (ALT/SGPT) 21 U/L (12-78) Alkaline Phosphatase 107 U/L (45-117) Troponin I < 0.015 ng/ml (0-0.045) Total Protein 8.1 gm/dl (6.4-8.2) Albumin 4.4 gm/dl (3.4-5.0) Lipase 96 U/L (73-393) Lactic Acid Level 1.3 mmol/L (0.4-2.0) Urine Color YELLOW Urine Appearance CLEAR (CLEAR) Urine pH 7.5 (4.5-7.5) Urine Specific [place] 1.025 (1.000-1.030) Urine Protein NEG (NEG) Urine Glucose (UA) NEG (NEG) Urine Ketones NEG (NEG) Urine Occult Blood TRACE (NEG) Urine Nitrite NEG (NEG) Urine Bilirubin NEG (NEG) Urine Urobilinogen NEG (NEG) Urine Leukocyte Esterase NEG (NEG) Urine WBC (Auto) 0 /hpf (0-5) Urine RBC (Auto) 0-4 /hpf (0-4) Urine Hyaline Casts (Auto) 0 /lpf (0-5) Urine Epithelial Cells (Auto) 0-5 /lpf (0-5) Urine Bacteria (Auto) NEG (NEG) Laboratory results reviewed by me Medications Administered Medications (Trade) Dose Ordered Sig/Annette Route Start Time Stop Time Status Last Admin Dose Admin Sodium Chloride 1,000 ml @ 999 mls/hr Q1H1M STAT IV 01/05/17 10:30 01/05/17 11:30 DC 01/05/17 11:03 999 MLS/HR Famotidine (Pepcid 20mg/100 ml) 20 mg ONE STAT IV 01/05/17 10:30 01/05/17 10:37 DC 01/05/17 11:05 20 MG Ondansetron HCl (Zofran Inj) 4 mg NOW STAT IV 01/05/17 10:30 01/05/17 10:37 DC 01/05/17 11:05 4 MG Fentanyl Citrate (Fentanyl Inj) 50 mcg NOW STAT IV 01/05/17 10:36 01/05/17 10:37 DC 01/05/17 11:05 50 MCG Ceftriaxone Sodium (Rocephin Inj) 1 gm NOW STAT IV 01/05/17 12:55 01/05/17 12:57 DC 01/05/17 13:08 1 GM Metronidazole (Flagyl / Nss) 500 mg NOW STAT IV 01/05/17 12:55 01/05/17 12:57 DC 01/05/17 13:08 500 MG Sodium Chloride 1,000 ml @ 125 mls/hr Q8H STAT IV 01/05/17 12:55 01/05/17 20:54 DC 01/05/17 13:10 125 MLS/HR Ondansetron HCl (Zofran Inj) 4 mg NOW STAT IV 01/05/17 13:45 01/05/17 13:47 DC 01/05/17 13:56 4 MG Bupivacaine HCl (Marcaine 0.5% MPF Inj) 30 ml STK-MED ONCE .ROUTE 01/05/17 15:25 01/05/17 15:26 DC 01/05/17 17:00 10 ML Lactated Ringer's 1,000 ml @ 100 mls/hr Q10H IV 01/05/17 17:16 02/04/17 17:15 01/05/17 18:58 100 MLS/HR ECG Indication: abdominal pain, nausea Rate (beats per minute): 72 Rhythm: normal sinus Findings: no acute ischemic change, other (normal axis) ED Course 1029: The patient was evaluated in room A4B. A complete history and physical exam was performed. 1030: Ordered Zofran Inj 4 mg IV, Famotidine 20 mg IV, Sodium Chloride 1000 ml @ 999 mls/hr IV. 1036: Ordered Fentanyl Citrate 50 mcg IV. 1303: I reevaluated the patient and she is resting comfortably. I discussed the exam findings with her and I discussed the treatment plan. The patient will be evaluated for further treatment. 1330: I discussed the patients case with Dr. Garcia, General Surgery. He will evaluate the patient for further treatment. Medical Decision I reviewed the patient's past medical history, medications, and the nursing notes as described above. The patient's presentation and history were concerning for Gastritis, gastroenteritis, obstruction, cholecystitis, diverticulitis, ACS, pneumonia, constipation. The patient is a 66 y/o woman who presents to the ED with n/v, epigastric pain, and constipation per HPI. On arrival the patient is uncomfortable appearing, AFVSS. Moderate epigastric ttp. Marginally improved with pepcid, zofran. WBC elevated to 10.8. CT abd/pel read as alcalculous cholecystitis. RUQ US ordered to further clarify and surgery consulted. Given ABX. RUQ showing +gallstones with pericholecystic fluid concerning for acute cholecystitis. Admitted to surgery with plan for OR. Medication Reconcilliation Current Medication List: was personally reviewed by me Blood Pressure Screening Patient's blood pressure: Elevated blood pressure Blood pressure disposition: Elevated BP felt to be situational, Did not require urgent referral Consults Time Called: 1257 Consulting Physician: Dr. Garcia, General Surgery Returned Call: 1330 I discussed the patients case with Dr. Garcia, General Surgery. He will evaluate the patient for further treatment. Impression Primary Impression: Acalculous cholecystitis Scribe Attestation The scribe's documentation has been prepared under my direction and personally reviewed by me in its entirety. I confirm that the note above accurately reflects all work, treatment, procedures, and medical decision making performed by me. Departure Information Dispostion Being Evaluated By Surgeon Prescriptions Oxycodone/Acetaminophen 5MG/325MG (PERCOCET 5MG/325MG) Tab 1-2 TABLETS PO Q4H Y for Pain, #30 TAB Prov: Roger Lambert JR.,PA-C 01/05/17 Referrals Pro,Thuan Bose M.D. (PCP)
[2017-01-05] MEDS ORDERED: OPTIRAY 320 IV PRN (10:45)
--- NOTE | 2017-01-05 11:03 | DIAGNOSTIC IMAGING REPORT ---
CHEST ONE VIEW PORTABLE CLINICAL HISTORY: Chest pain. COMPARISON STUDY: No previous studies for comparison. FINDINGS: Lung volumes are normal. Lungs are clear. No pneumothorax or pleural effusion is present. Pulmonary vascularity is normal. Cardiomediastinal silhouette is normal. IMPRESSION: No acute cardiopulmonary findings. Electronically signed by: Chai Salinas M.D. 01/05/2017 11:01 AM Dictated Date/Time: 01/05/2017 11:01 AM
[2017-01-05 11:18] LABS: BASO % 0.1 %; EOS % 0.6 %; HEMATOCRIT 43.4 % (37-47); IG% 0.2 %; LYMPH % 15.4 %; MEAN CORPUSCULAR HEMOGLOBIN 31.1 pg (25-34); MEAN CORPUSCULAR HGB CONC 34.6 g/dl (32-36); MEAN PLATELET VOLUME 10.2 fL (7.4-10.4); MONO % 7.8 %; NEUT % 75.9 %; PLATELET COUNT 325 K/uL (130-400); RED BLOOD COUNT 4.82 M/uL (4.2-5.4); WHITE BLOOD COUNT 10.89 K/uL (4.8-10.8)
[2017-01-05 11:19] LABS: BASO ABS # 0.01 K/uL (0-0.2); COMPLETE YES; LYMPH ABS # 1.68 K/uL (1.2-3.4)
[2017-01-05] MEDS ORDERED: LISI-725 PO (11:24)
[2017-01-05] MEDS ORDERED: MELO7.5T5 PO (11:24)
[2017-01-05 11:36] LABS: ALT/SGPT 21 U/L (12-78); BLOOD UREA NITROGEN 7 mg/dl (7-18); BUN/CREATININE RATIO 9.7 (10-20); CARBON DIOXIDE 22 mmol/L (21-32); CHLORIDE 102 mmol/L (98-107); CREATININE 0.73 mg/dl (0.60-1.20); GLUCOSE 93 mg/dl (70-99); POTASSIUM 3.1 mmol/L (3.5-5.1); SODIUM 134 mmol/L (136-145)
[2017-01-05 11:41] LABS: ALKALINE PHOSPHATASE 107 U/L (45-117); AST/SGOT 14 U/L (15-37)
--- NOTE | 2017-01-05 12:20 | DIAGNOSTIC IMAGING REPORT ---
ABD/PELVIS IV CONTRAST ONLY CT DOSE: 329.36 mGy.cm HISTORY: Pain epiaortic pain / constipation TECHNIQUE: Multiaxial CT images of the abdomen and pelvis were performed following the use of intravenous contrast. A dose lowering technique was utilized adhering to the principles of ALARA. COMPARISON STUDY: None. FINDINGS: Lung bases are clear. Liver spleen and pancreas are uniform in appearance. There are findings of moderate gallbladder wall edema versus trace amount of pericholecystic fluid. No well-defined gallstones are appreciated although the appearance does suggest a calculus cholecystitis. Pancreas is uniform with no significant pancreatic ductal distention. The adrenal glands are normal. There are several small renal cortical cysts. There is no evidence for renal hydronephrosis. Bowel pattern is considered nonobstructive. There are findings of moderate chronic sigmoid diverticulosis. No evidence for acute diverticulitis. Bladder is midline. No significant free fluid within the abdominal or pulmonary region. Inguinal regions are unremarkable. IMPRESSION: 1. Findings suggesting acute acalculus cholecystitis. 2. Right upper quadrant ultrasonography is suggested as confirmation. 3. Chronic sigmoid diverticulosis. 4. No evidence for acute diverticulitis. 5. Fecal content within the colon is considered to be within normal limits. The above report was generated using voice recognition software. It may contain grammatical, syntax or spelling errors. Electronically signed by: Aj Segovia M.D. 01/05/2017 12:18 PM Dictated Date/Time: 01/05/2017 12:08 PM
[2017-01-05] MEDS ORDERED: METRONIDAZOLE 500MG / 100ML NSS IV STA (12:55)
[2017-01-05] MEDS ORDERED: CEFTRIAXONE SOD INJ 1 GM ADDVIAL IV STA (12:55)
[2017-01-05 14:06] LABS: URINE APPEARANCE CLEAR (CLEAR); URINE BILIRUBIN NEG (NEG); URINE COLOR YELLOW; URINE EPITHELIAL CELL AUTO 0-5 /lpf (0-5); URINE NITRITE NEG (NEG); URINE PH 7.5 (4.5-7.5); URINE SPECIFIC GRAVITY 1.025 (1.000-1.030); UROBILINOGEN NEG (NEG); ZZUR CULT IF INDIC CLEAN CATCH NO
[2017-01-05 14:09] LABS: MANUAL MICROSCOPIC REQUIRED? NO; REVIEW REQ? NO
--- NOTE | 2017-01-05 15:06 | DIAGNOSTIC IMAGING REPORT ---
Biliary ultrasound CLINICAL HISTORY: Epigastric pain COMPARISON STUDY: CT scan dated 01/05/2017 FINDINGS: The pancreas appears normal as visualized. No focal hepatic masses are visualized. There is gallbladder wall thickening, and pericholecystic fluid. Gallstones are present. There is a positive sonographic Varner sign. The findings are consistent with acute cholecystitis. There is no right-sided hydronephrosis. IMPRESSION: 1. Cholelithiasis, gallbladder wall thickening, pericholecystic fluid, and a positive sonographic Varner sign. The findings are highly suspicious for acute cholecystitis. Surgical consultation is recommended. Electronically signed by: Larry Brito M.D. 01/05/2017 3:04 PM Dictated Date/Time: 01/05/2017 3:02 PM
[2017-01-05] MEDS ORDERED: NEOSTIGMINE METHYLSULFATE 5 MG/5 ML SYR ONE (15:21)
[2017-01-05] MEDS ORDERED: PROPOFOL IV EMULSION 10 MG/ML 20 ML VIAL IV ONE (15:21)
[2017-01-05] MEDS ORDERED: GLYCOPYRROLATE INJ 0.2 MG/ML VIAL ONE (15:21)
[2017-01-05] MEDS ORDERED: ONDANSETRON INJ 2 MG/ML 2 ML VIAL ONE (15:21)
[2017-01-05] MEDS ORDERED: FENTANYL CITRATE INJ 50 MCG/1 ML 2 ML VIAL ONE ×2 (15:21→16:42)
[2017-01-05] MEDS ORDERED: DEXAMETHASONE SOD INJ 4 MG/ML VIAL ONE (15:21)
[2017-01-05] MEDS ORDERED: LIDOCAINE HCL 2% 2 ML VIAL (20MG/ML) ONE (15:21)
[2017-01-05] MEDS ORDERED: ROCURONIUM BROMIDE 10 MG/ML 5 ML VIAL IV ONE (15:21)
[2017-01-05] MEDS ORDERED: MIDAZOLAM HCL 1 MG/ML 2ML VIAL ONE (15:21)
--- NOTE | 2017-01-05 15:23 | History and Physical ---
History & Physical Date & Time of Service: Jan 05, 2017 at 15:09 Chief Complaint: Nausea Primary Care Physician: Thuan Oneil M.D. History of Present Illness 66 y/o female with pain across the upper abdomen began in the afternoon approx 48 hours ago. Does not recall inciting event or food. She has had nausea and vomited several times. Pain has improved since being medicated but remains constant. No previous abdominal pain or fatty food intolerance. Has not had BM in past 2-3 days. She had left breast biopsy last Sunday by Dr. Pan at [facility]. Past Medical/Surgical History Medical Problems: (1) Breast cancer 2) HTN Surgical: right partial mastectomy left breast biopsy 12/29/16 Family History Alzheimer's disease Cancer Diabetes mellitus Heart disease Kidney disease Social History Smoking Status: Never Smoker Drug Use: none Marital Status: Occupational Status: employed Multi-Drug Resistant Organisms History of MDRO: No Allergies Coded Allergies: BEE STING (Verified Allergy, Mild, SWELLING AROUND SITE AND SOMETIMES WORSE DEPENDS ON BEE, 12/29/16) NO KNOWN DRUG ALLERGIES (Verified Allergy, Mild, ., 12/29/16) Home Medications Scheduled Calcium Carbonate-Vitamin D (Calcium), 1,500 MG PO QAM Cholecalciferol (Vitamin D3), 1 TAB PO QAM Letrozole (Femara), 1 TAB PO QAM Lisinopril (Zestril), 20 MG PO DAILY Magnesium (Magnesium), 400 MG PO QAM Meloxicam (Mobic), 7.5-15 MG PO DAILY WITH FOOD Multivitamin (Multivitamin), 1 TAB PO QAM Scheduled PRN Tramadol (Ultram), 50 MG PO Q4H PRN for Pain Valacyclovir (Valtrex), 500 MG PO DAILY PRN for COLD SORES Review of Systems Constitutional: + fever, No chills Abdomen: + pain, + nausea, + vomiting, + constipation Physical Exam Vital Signs Date Time Temp Pulse Resp B/P (MAP) Pulse Ox O2 Delivery O2 Flow Rate FiO2 01/05/17 14:02 76 16 159/89 99 Room Air 01/05/17 13:52 78 01/05/17 11:54 154/102 01/05/17 11:54 Room Air 01/05/17 11:14 79 01/05/17 10:18 36.6 85 28 164/96 99 Room Air General Appearance: WD/WN, no apparent distress Eyes: normal inspection, sclerae normal Respiratory/Chest: lungs clear, normal breath sounds Cardiovascular: regular rate, rhythm, no edema Abdomen/GI: soft, + tenderness (RUQ), + guarding Neurologic/Psych: alert, normal mood/affect, oriented x 3 Skin: normal color, warm/dry Diagnostics Laboratory Results Results Past 24 Hours Test 01/05/17 11:00 01/05/17 11:26 01/05/17 13:30 Range/Units White Blood Count 10.89 4.8-10.8 K/uL Red Blood Count 4.82 4.2-5.4 M/uL Hemoglobin 15.0 12.0-16.0 g/dL Hematocrit 43.4 37-47 % Mean Corpuscular Volume 90.0 80-100 fL Mean Corpuscular Hemoglobin 31.1 25-34 pg Mean Corpuscular Hemoglobin Concent 34.6 32-36 g/dl Platelet Count 325 130-400 K/uL Mean Platelet Volume 10.2 7.4-10.4 fL Neutrophils (%) (Auto) 75.9 % Lymphocytes (%) (Auto) 15.4 % Monocytes (%) (Auto) 7.8 % Eosinophils (%) (Auto) 0.6 % Basophils (%) (Auto) 0.1 % Neutrophils # (Auto) 8.27 1.4-6.5 K/uL Lymphocytes # (Auto) 1.68 1.2-3.4 K/uL Monocytes # (Auto) 0.85 0.11-0.59 K/uL Eosinophils # (Auto) 0.06 0-0.5 K/uL Basophils # (Auto) 0.01 0-0.2 K/uL RDW Standard Deviation 41.4 36.4-46.3 fL RDW Coefficient of Variation 12.8 11.5-14.5 % Immature Granulocyte % (Auto) 0.2 % Immature Granulocyte # (Auto) 0.02 0.00-0.02 K/uL Sodium Level 134 136-145 mmol/L Potassium Level 3.1 3.5-5.1 mmol/L Chloride Level 102 98-107 mmol/L Carbon Dioxide Level 22 21-32 mmol/L Anion Gap 10.0 3-11 mmol/L Blood Urea Nitrogen 7 7-18 mg/dl Creatinine 0.73 0.60-1.20 mg/dl Est Creatinine Clear Calc Drug Dose 72.8 ml/min Estimated GFR () 100.9 Estimated GFR (Non- 87.0 BUN/Creatinine Ratio 9.7 10-20 Random Glucose 93 70-99 mg/dl Calcium Level 10.0 8.5-10.1 mg/dl Total Bilirubin 0.9 0.2-1 mg/dl Direct Bilirubin 0.2 0-0.2 mg/dl Aspartate Amino Transf (AST/SGOT) 14 15-37 U/L Alanine Aminotransferase (ALT/SGPT) 21 12-78 U/L Alkaline Phosphatase 107 45-117 U/L Troponin I < 0.015 0-0.045 ng/ml Total Protein 8.1 6.4-8.2 gm/dl Albumin 4.4 3.4-5.0 gm/dl Lipase 96 73-393 U/L Lactic Acid Level 1.3 0.4-2.0 mmol/L Urine Color YELLOW Urine Appearance CLEAR CLEAR Urine pH 7.5 4.5-7.5 Urine Specific [place] 1.025 1.000-1.030 Urine Protein NEG NEG Urine Glucose (UA) NEG NEG Urine Ketones NEG NEG Urine Occult Blood TRACE NEG Urine Nitrite NEG NEG Urine Bilirubin NEG NEG Urine Urobilinogen NEG NEG Urine Leukocyte Esterase NEG NEG Urine WBC (Auto) 0 0-5 /hpf Urine RBC (Auto) 0-4 0-4 /hpf Urine Hyaline Casts (Auto) 0 0-5 /lpf Urine Epithelial Cells (Auto) 0-5 0-5 /lpf Urine Bacteria (Auto) NEG NEG Diagnostic Radiology Biliary ultrasound CLINICAL HISTORY: Epigastric pain COMPARISON STUDY: CT scan dated 01/05/2017 FINDINGS: The pancreas appears normal as visualized. No focal hepatic masses are visualized. There is gallbladder wall thickening, and pericholecystic fluid. Gallstones are present. There is a positive sonographic Varner sign. The findings are consistent with acute cholecystitis. There is no right-sided hydronephrosis. IMPRESSION: 1. Cholelithiasis, gallbladder wall thickening, pericholecystic fluid, and a positive sonographic Varner sign. The findings are highly suspicious for acute cholecystitis. Surgical consultation is recommended. Electronically signed by: Larry Brito M.D. 01/05/2017 3:04 PM Dictated Date/Time: 01/05/2017 3:02 PM Impression Assessment and Plan cholelithiasis, acute cholecystitis Ultrasound has demonstrated cholelithiasis which her initial CT did not. Seen with Dr. Garcia and recommended laparoscopic cholecystectomy. Discussed the procedure with her and her including risks of bleeding, infection, bile leak, injury to CBD or other structures, or possibility of converting to open procedure. She would like to proceed with surgery. She was given Rocephin and Flagyl in the ED at 1300. Patient seen and examined, labs and imaging personally reviewed, agree with above. 66 year old female with cholelithiasis and acute cholecystitis, plan for laparoscopic cholecystectomy with possible intraoperative cholangiogram. Diagnosis, etiology, risks of surgery, and plan of care were discussed. All questions answered, patient expressed understanding and agrees to proceed with surgery and plan of care as stated. Charity Garcia, DO
[2017-01-05] MEDS ORDERED: BUPIVACAINE 0.5 % 5 MG/1 ML MPF 30ML VIAL ONE (15:25)
[2017-01-05] MEDS ORDERED: CEFOXITIN IV 2,000 MG in DEXTROSE 5% 50ML 50 ML IV ONE (15:45)
[2017-01-05] MEDS ORDERED: HYDROmorphone INJ 1 MG/ML SYR IV PRN (16:30)
[2017-01-05] MEDS ORDERED: PROMETHAZINE HCL INJ 12.5 MG in SODIUM CHLORIDE 0.9% 50ML 50 ML IV PRN (16:30)
[2017-01-05] MEDS ORDERED: LABETALOL HCL IV 5 MG/ML 20ML IV PRN (16:30)
[2017-01-05] MEDS ORDERED: NALOXONE HCL 0.4 MG/1 ML VIAL/CARP IV PRN (16:30)
[2017-01-05] MEDS ORDERED: ONDANSETRON INJ 2 MG/ML 2 ML VIAL IV PRN ×2 (16:30→17:30)
[2017-01-05] MEDS ORDERED: FLUMAZENIL 0.1 MG/1 ML 10 ML VIAL IV PRN (16:30)
[2017-01-05] MEDS ORDERED: EpHEDrine SULFATE INJ 50 MG/ML AMP IV PRN (16:30)
[2017-01-05] MEDS ORDERED: ATROPINE SULFATE 0.1 MG/ML 5ML SYR IV PRN (16:30)
[2017-01-05] MEDS ORDERED: OXYC-57 PO (17:11)
--- NOTE | 2017-01-05 17:16 | Discharge Instructions ---
Discharge Instructions Date of Service Jan 05, 2017. Admission Reason for Admission: Nausea Discharge Discharge Diagnosis / Problem: laparoscopic cholecystectomy Discharge Goals Goal(s): Decrease discomfort Activity Recommendations Activity Limitations: as noted below Lifting Limitations: no more than 10 pounds Shower/Bathe: no limitations Driving or Machine Use: resume 3 days after discharge . Instructions / Follow-Up Instructions / Follow-Up Dr. Garcia in 2 weeks, call [phone] to schedule, [facility] Current Hospital Diet Patient's current hospital diet: Discharge Diet Recommended Diet: Regular Diet Procedures Procedures Performed: Laparoscopic Cholecystectomy Pending Studies Studies pending at discharge: no Medical Emergencies . Who to Call and When: Medical Emergencies: If at any time you feel your situation is an emergency, please call 911 immediately. . Non-Emergent Contact Non-Emergency issues call your: Surgeon Call Non-Emergent contact if: you have a fever, temperature is above 101.5, your pain is not controlled, wound has increased pain, you have any medication questions . "Provider Documentation" section prepared by Roger Lambert. . VTE Core Measure Inpt VTE Proph given/why not?: SCD's [place] Drug Monitoring Program Search Results: no issues identified
--- NOTE | 2017-01-05 17:16 | [facility] Post Operative Brief Note ---
Immediate Operative Summary Operative Date Jan 05, 2017. Pre-Operative Diagnosis Acute Cholecystitis, Cholelithiasis Post-Operative Diagnosis Acute Cholecystitis, Cholelithiasis Procedure(s) Performed Laparoscopic Cholecystectomy Surgeon Dr. Garcia Brand Executive Surgeon(s) Roger Lambert PA-C Estimated Blood Loss 5ML Findings acutely inflamed, window of safety obtained, cystic duct and artery doubly clipped and divided, good hemostasis. Specimens A. Gallbladder and contents Drains None Anesthesia GETA Complication(s) None Disposition Recovery Room / PACU
--- NOTE | 2017-01-05 17:20 | [facility] Operative Report ---
Operative Report Operative Date Jan 05, 2017. Pre-Operative Diagnosis Acute Cholecystitis, Cholelithiasis Post-Operative Diagnosis cholelithiasis with acute cholecystitis Procedure(s) Performed laparoscopic cholecystectomy Surgeon Dr. Garcia Rod Mill Tender Surgeon(s) Roger Lambert PA-C Estimated Blood Loss 5ML Findings acutely inflamed, window of safety obtained, cystic duct and artery doubly clipped and divided, good hemostasis. Specimens A. Gallbladder and contents Drains None Anesthesia GETA Complication(s) None Disposition Recovery Room / PACU Indications 66 year old female with cholelithiasis and acute cholecystitis, plan for laparoscopic cholecystectomy with possible intraoperative cholangiogram. The risks of the procedure were discussed, all questions were answered, and the patient agreed to proceed with surgery as planned. Description of Procedure The patient was properly identified, consented, and taken to the operating room where she was placed in the supine position. General endotracheal anesthesia was induced. SCDs and a safety belt were placed. Preoperative antibiotics were administered. The patient's abdomen was prepped and draped in the standard sterile fashion. A surgical timeout was performed and all parties were in agreement that this was the correct patient and procedure to be performed and we continued as planned. A curvilinear, infraumbilical incision was made with electrocautery and deepened down to the fascia with blunt dissection. The base of the umbilicus was grasped with a Ana and elevated towards the ceiling. An incision was made in the midline fascia with a knife and entry into the peritoneum was confirmed. Stay suture of 0 Vicryl was placed and a Patel trocar was inserted. The abdomen was insufflated with carbon dioxide which the patient tolerated without incident. The laparoscope was inserted and no damage from initial trocar placement was noted, no gross abnormalities were noted within the 4 quadrants of the abdomen. 5 mm ports were then placed in the subxiphoid position in the midline and 2 in the right subcostal position. The patient was placed in reverse Trendelenburg position and rotated towards the left. The gallbladder was acutely inflamed. Omental adhesions were taken down with blunt dissection. The dome of the gallbladder was retracted towards the left upper quadrant and the infundibulum was retracted toward the right lower quadrant revealing Calot's triangle. Peritoneal attachments were taken down with electrocautery and blunt dissection. The cystic duct and artery were circumferentially dissected. A window of safety was obtained showing the cystic duct entering the gallbladder with no aberrant structures noted. The cystic duct and artery were doubly clipped and divided. One of the cystic duct clips did not appear to traverse the duct, so an additional clip was placed. The gallbladder was then lifted off the gallbladder fossa with electrocautery. The gallbladder was placed in an Endo Catch bag and removed through the umbilical port site. The right upper quadrant was irrigated and hemostasis was found to be good. 5 mm trochars were removed under direct visualization and the abdomen was allowed to collapse. The umbilical port site fascia was closed with 0 Vicryl suture. The wound was irrigated, and the skin of all ports was closed with 4-0 Monocryl subcuticular sutures. Dermabond was placed over the wounds. The patient was extubated in the operating room and taken to the PACU where she recovered without apparent incident. All sponge, instrument and needle counts were correct at the conclusion of the procedure. The patient tolerated the procedure well. I attest to the content of the Intraoperative Record and any orders documented therein. Any exceptions are noted below.
[2017-01-05] MEDS ORDERED: OXYCODONE/ACETAMINOPHEN 5-325 TAB PO PRN ×2 (17:30)
[2017-01-05] MEDS ORDERED: MoRPHine SULFATE 4 MG/ML 1 ML CARP\\VIAL IV PRN (17:30)
--- NOTE | 2017-01-05 18:00 | Anesthesiology Progress Note ---
Anesthesia Post Op Note Date & Time Jan 05, 2017 at 17:59 Vital Signs Pain Intensity: 0 Vital Signs Past 12 Hours Date Time Temp Pulse Resp B/P (MAP) Pulse Ox O2 Delivery O2 Flow Rate FiO2 01/05/17 17:50 88 17 138/85 100 Nasal Cannula 2 01/05/17 17:40 89 15 145/87 100 Oxymask 10 01/05/17 17:30 92 16 146/86 100 Oxymask 10 01/05/17 17:23 37.0 95 14 143/89 99 Oxymask 10 01/05/17 15:53 37.2 82 16 172/90 (117) 100 Room Air 01/05/17 15:33 80 20 165/78 99 Room Air 01/05/17 14:02 76 16 159/89 99 Room Air 01/05/17 13:52 78 01/05/17 11:54 154/102 01/05/17 11:54 Room Air 01/05/17 11:14 79 01/05/17 10:18 36.6 85 28 164/96 99 Room Air Notes Mental Status: alert / awake / arousable, participated in evaluation Pt Amnestic to Procedure: Yes Nausea / Vomiting: adequately controlled Pain: adequately controlled Airway Patency, RR, SpO2: stable & adequate BP & HR: stable & adequate Hydration State: stable & adequate Anesthetic Complications: no major complications apparent
[2017-01-05] MEDS ORDERED: IV FLUIDS COMPLETED PRN (18:15)
[2017-01-05 18:25] VITALS: BP_SYST 126; BP_SYST 131; BP_DIAS 79; BP_DIAS 85; PULSE 76; PULSE 90; TEMP 37; TEMP 37.8; O2SAT 100; Ht 167.6 cm; Wt 69.4 kg
[2017-01-05 18:55] VITALS: BP 126/79; PULSE 76; TEMP 37; O2SAT 97
[2017-01-05] MEDS: LACTATED RINGER'S 1000ML 1,000 ML IV SCH (18:58)
[2017-01-05 19:25] VITALS: BP 138/85; PULSE 106; TEMP 36.8; O2SAT 97
[2017-01-05 20:25] VITALS: BP 131/80; PULSE 93; TEMP 37.1; O2SAT 96
[2017-01-05 21:26] VITALS: BP 148/85; PULSE 95; TEMP 37.4; O2SAT 97
[2017-01-05 22:52] VITALS: BP 121/75; PULSE 88; TEMP 36.7; O2SAT 96
[2017-01-05] MEDS ORDERED: NURSING VERBAL MED ORDER ONE (23:00)
[2017-01-06] MEDS: LACTATED RINGER'S 1000ML 1,000 ML IV SCH (03:06)
[2017-01-06 03:56] VITALS: BP 98/60; PULSE 65; TEMP 36.6; O2SAT 97
[2017-01-06 07:45] VITALS: BP 105/68; PULSE 64; TEMP 36.6; O2SAT 97
--- NOTE | 2017-01-06 08:20 | Surgery Progress Note ---
Surgery Progress Note Date of Service Jan 06, 2017. Subjective 66 year old female POD#1 lap cholecystectomy for acute cholecystitis. Overall doing well, pain controlled, symptoms improved, tolerating diet, ambulating, urinating. Wants to go home Objective Vital Signs: Date Time Temp Pulse Resp B/P (MAP) Pulse Ox O2 Delivery O2 Flow Rate FiO2 01/06/17 07:45 36.6 64 16 105/68 (80) 97 Room Air 01/06/17 03:56 36.6 65 16 98/60 (73) 97 Room Air 01/06/17 00:15 Room Air 01/05/17 22:52 36.7 88 18 121/75 (90) 96 Room Air 01/05/17 21:26 37.4 95 16 148/85 (106) 97 Room Air 01/05/17 20:25 37.1 93 16 131/80 (97) 96 Room Air 01/05/17 19:25 36.8 106 16 138/85 (102) 97 Nasal Cannula 2.0 01/05/17 18:55 37.0 76 16 126/79 (95) 97 Nasal Cannula 2.0 01/05/17 18:25 37.8 90 16 131/85 (100) 100 Nasal Cannula 2.0 01/05/17 18:25 37.0 76 16 126/79 100 Nasal Cannula 2.0 01/05/17 18:25 100 Nasal Cannula 2.0 01/05/17 18:25 Nasal Cannula 2.0 01/05/17 18:10 88 13 136/82 98 Nasal Cannula 2 01/05/17 18:00 37.0 88 12 145/80 99 Nasal Cannula 2 01/05/17 17:50 88 17 138/85 100 Nasal Cannula 2 01/05/17 17:40 89 15 145/87 100 Oxymask 10 01/05/17 17:30 92 16 146/86 100 Oxymask 10 01/05/17 17:23 37.0 95 14 143/89 99 Oxymask 10 01/05/17 15:53 37.2 82 16 172/90 (117) 100 Room Air 01/05/17 15:33 80 20 165/78 99 Room Air 01/05/17 14:02 76 16 159/89 99 Room Air 01/05/17 13:52 78 01/05/17 11:54 154/102 01/05/17 11:54 Room Air 01/05/17 11:14 79 01/05/17 10:18 36.6 85 28 164/96 99 Room Air General Appearance: WD/WN, no apparent distress Head: normocephalic, atraumatic Neck: supple, no adenopathy, thyroid normal, no JVD, no carotid bruits, trachea midline Respiratory/Chest: chest non-tender, lungs clear, normal breath sounds, no respiratory distress, no accessory muscle use Cardiovascular: regular rate, rhythm, no edema, no gallop, no JVD, no murmur Abdomen: normal bowel sounds, non tender, non distended, soft, no organomegaly , no pulsatile mass Incision(s): clean, dry, intact, no erythema, no drainage Extremities: normal range of motion, non-tender, normal inspection, no pedal edema, no calf tenderness, normal capillary refill, pelvis stable Laboratory Results: Results Past 24 Hours Test 01/05/17 11:00 01/05/17 11:26 01/05/17 13:30 Range/Units White Blood Count 10.89 4.8-10.8 K/uL Red Blood Count 4.82 4.2-5.4 M/uL Hemoglobin 15.0 12.0-16.0 g/dL Hematocrit 43.4 37-47 % Mean Corpuscular Volume 90.0 80-100 fL Mean Corpuscular Hemoglobin 31.1 25-34 pg Mean Corpuscular Hemoglobin Concent 34.6 32-36 g/dl Platelet Count 325 130-400 K/uL Mean Platelet Volume 10.2 7.4-10.4 fL Neutrophils (%) (Auto) 75.9 % Lymphocytes (%) (Auto) 15.4 % Monocytes (%) (Auto) 7.8 % Eosinophils (%) (Auto) 0.6 % Basophils (%) (Auto) 0.1 % Neutrophils # (Auto) 8.27 1.4-6.5 K/uL Lymphocytes # (Auto) 1.68 1.2-3.4 K/uL Monocytes # (Auto) 0.85 0.11-0.59 K/uL Eosinophils # (Auto) 0.06 0-0.5 K/uL Basophils # (Auto) 0.01 0-0.2 K/uL RDW Standard Deviation 41.4 36.4-46.3 fL RDW Coefficient of Variation 12.8 11.5-14.5 % Immature Granulocyte % (Auto) 0.2 % Immature Granulocyte # (Auto) 0.02 0.00-0.02 K/uL Sodium Level 134 136-145 mmol/L Potassium Level 3.1 3.5-5.1 mmol/L Chloride Level 102 98-107 mmol/L Carbon Dioxide Level 22 21-32 mmol/L Anion Gap 10.0 3-11 mmol/L Blood Urea Nitrogen 7 7-18 mg/dl Creatinine 0.73 0.60-1.20 mg/dl Est Creatinine Clear Calc Drug Dose 72.8 ml/min Estimated GFR () 100.9 Estimated GFR (Non- 87.0 BUN/Creatinine Ratio 9.7 10-20 Random Glucose 93 70-99 mg/dl Calcium Level 10.0 8.5-10.1 mg/dl Total Bilirubin 0.9 0.2-1 mg/dl Direct Bilirubin 0.2 0-0.2 mg/dl Aspartate Amino Transf (AST/SGOT) 14 15-37 U/L Alanine Aminotransferase (ALT/SGPT) 21 12-78 U/L Alkaline Phosphatase 107 45-117 U/L Troponin I < 0.015 0-0.045 ng/ml Total Protein 8.1 6.4-8.2 gm/dl Albumin 4.4 3.4-5.0 gm/dl Lipase 96 73-393 U/L Lactic Acid Level 1.3 0.4-2.0 mmol/L Urine Color YELLOW Urine Appearance CLEAR CLEAR Urine pH 7.5 4.5-7.5 Urine Specific [place] 1.025 1.000-1.030 Urine Protein NEG NEG Urine Glucose (UA) NEG NEG Urine Ketones NEG NEG Urine Occult Blood TRACE NEG Urine Nitrite NEG NEG Urine Bilirubin NEG NEG Urine Urobilinogen NEG NEG Urine Leukocyte Esterase NEG NEG Urine WBC (Auto) 0 0-5 /hpf Urine RBC (Auto) 0-4 0-4 /hpf Urine Hyaline Casts (Auto) 0 0-5 /lpf Urine Epithelial Cells (Auto) 0-5 0-5 /lpf Urine Bacteria (Auto) NEG NEG Assessment & Plan POD#1 lap cholecystectomy, doing well, ready for discharge Plan: discharge to home follow up in clinic in 1-2 weeks return precautions given wound care instructions and activity limitations reviewed percocet rx given motrin and colac OTC prn at home the details of surgery and plan of care reviewed, all questions answered, patient expressed understanding and agrees to proceed with plan of care as stated Charity Garcia, DO
[2017-01-06 08:56] VITALS: BP 105/68; PULSE 64; TEMP 36.6; O2SAT 97
== END 2017-01-06 09:30 | disposition home or self-care (01) ==
LOC: C.EDB 10:13 → C.MSW 17:19 → ENRESERV 18:06
PROVIDERS: ADMIT Surgery; ATTEND Surgery
DX: K80.00 Calculus of gallbladder with acute cholecystitis without obstruction (principal); I10 Essential (primary) hypertension; Z85.3 Personal history of malignant neoplasm of breast; Z79.899 Other long term (current) drug therapy

== ENCOUNTER → 2017-07-20 | Outpatient (CLI) | payer OTHER ==
[~2017-07-20] MED LIST changes: -ASCO1CAP3 PO; -CLBPO15 TOP; -HYDR-5688 PO; +LISI-725 PO; -LISI10TA PO; +MELO7.5T5 PO; -TRAM-10 PO
--- NOTE | 2017-07-20 15:05 | MAMMOGRAPHY REPORT ---
BILATERAL DIGITAL DIAGNOSTIC MAMMOGRAM TOMOSYNTHESIS WITH CAD: 07/20/2017 CLINICAL HISTORY: History of right breast cancer status post right lumpectomy November 2015 as well as radiation therapy. The patient also underwent surgical excision of an area of architectural distorti on within the left breast December 2016 which yielded a radial scar with atypical ductal hyperplasia . The patient reports continued right breast pain since her surgery, but denies any palpable lumps o r other new complaints. TECHNIQUE: Breast tomosynthesis in addition to standard 2D mammography was performed. Current study was also evaluated with a Computer Aided Detection (CAD) system. Bilateral CC and MLO 2D and tomosyn thesis images were obtained. COMPARISON: Comparison is made to exams dated: 12/29/2016 mammogram, 12/29/2016 specimen, 12/29/2016 local ization, 12/11/2016 mammogram, 12/11/2016 ultrasound biopsy, and 12/07/2016 ultrasound - [facility]. BREAST COMPOSITION: There are scattered areas of fibroglandular density in both breasts. FINDINGS: Again noted are post surgical changes in the right central breast from prior lumpectomy, in cluding stable density, architectural distortion, and surgical clips at the lumpectomy bed. A few co arse benign dystrophic calcifications are seen in the region of the lumpectomy bed. There is new min imal postsurgical architectural distortion in the left central anterior breast from prior surgical ex cision of a radial scar. The remainder of both breasts are stable compared to prior exams, without suspicious masses, calcific ations, or areas of architectural distortion noted. Faint scattered bilateral benign-appearing calci fications are stable compared to prior exams. IMPRESSION: ACR BI-RADS CATEGORY 2: BENIGN Stable posttreatment changes in the right breast and new postsurgical changes in the left breast, wit hout mammographic evidence of malignancy in either breast. Recommend routine bilateral mammograms in 1 year; I would recommend the patient remain a diagnostic patient in case additional spot magnificat ion views need to be obtained. The patient has been verbally notified of the results. Approximately 10% of breast cancers are not detected with mammography. A negative mammographic report should not delay biopsy if a clinically suggestive mass is present. Lili Mueller M.D. ah/:07/20/2017 11:55:46 [employer] Technology Instructor: Perla ALEJO(Allie)(M), [facility] letter sent: Normal 1/2 BI-RADS Code: ACR BI-RADS Category 2: Benign
== END | disposition home or self-care (01) ==
LOC: C.MAMM 11:06
PROVIDERS: ATTEND Surgery
DX: N64.4 Mastodynia (principal); Z85.3 Personal history of malignant neoplasm of breast; Z08 Encounter for follow-up examination after completed treatment for malignant neoplasm; Z92.3 Personal history of irradiation; Z98.890 Other specified postprocedural states

== ENCOUNTER → 2017-07-23 | Outpatient (CLI) | payer OTHER | END | disposition home or self-care (01) | LOC: C.MAMM 14:42 | PROVIDERS: ATTEND Internal Medicine Hematology & Oncology | DX: M85.851 Other specified disorders of bone density and structure, right thigh (principal); M85.852 Other specified disorders of bone density and structure, left thigh ==

== ENCOUNTER → 2017-08-30 | Outpatient (CLI) | payer BC, OTHER | END | disposition home or self-care (01) | LOC: C.LABSPEC 10:07 | PROVIDERS: ATTEND Internal Medicine | DX: E78.5 Hyperlipidemia, unspecified (principal); G62.9 Polyneuropathy, unspecified ==

== ENCOUNTER → 2017-12-10 | Outpatient (CLI) | payer BC ==
[~2017-12-10] MED LIST changes: -MELO7.5T5 PO
== END | disposition home or self-care (01) ==
LOC: C.PAPS 15:31
PROVIDERS: ATTEND Obstetrics & Gynecology
DX: Z01.419 Encounter for gynecological examination (general) (routine) without abnormal findings (principal)